=== PATIENT | male | born 1955 | race African-American/Black ===

== ENCOUNTER 2018-11-26 09:04 | Emergency (ER) | payer MEDICAID ==
[~2018-11-26] VITALS: Ht 180.3 cm; Wt 100.0 kg
[2018-11-26] MEDS ORDERED: LOSA25TA26 PO (09:14)
[2018-11-26] MEDS ORDERED: SODIUM CHLORIDE 0.9% 1,000 ML IV ONE (10:39)
[2018-11-26 11:47] LABS: BASOPHILS % 0.4 % (0.0-2.0); EOSINOPHILS % 1.8 % (0.0-5.0); HEMOGLOBIN. 15.6 g/dL (14.0-18.0); LYMPHOCYTES % 16.7 % (20.0-50.0); MEAN CORPUSCULAR HEMOGLOBIN 30.2 pg (28.0-32.0); MEAN CORPUSCULAR VOLUME 89.2 fL (80.0-94.0); MEAN PLATELET VOLUME 9.5 fl (7.4-10.4); MONOCYTES % 6.6 % (2.0-8.0); NEUTROPHILS % 74.5 % (40.0-76.0); PLATELET 234 x1000/uL (130-400); RED BLOOD CELL COUNT 5.16 mill/uL (4.7-6.1); RED CELL DISTRIBUTION WIDTH 13.3 % (11.6-14.6)
[2018-11-26 11:51] LABS: CHLORIDE 107 mEq/L (98-107)
[2018-11-26 12:04] LABS: PARTIAL THROMBOPLASTIN TIME 28.2 sec (23.4-31.0); PROTHROMBIN TIME 10.4 sec (9.6-11.0)
[2018-11-26 13:48] VITALS: BP 141/106
[2018-11-26] MEDS ORDERED: IOHEXOL-350 100 ML BOTTLE ONE (14:49)
[2018-11-26] MEDS ORDERED: KETOROLAC 30MG/ML VIAL IV ONE (15:00)
== END 2018-11-26 16:00 | disposition home or self-care (01) ==
LOC: ER 09:31
DX: S61.210A Laceration without foreign body of right index finger without damage to nail, initial encounter (principal); S16.1XXA Strain of muscle, fascia and tendon at neck level, initial encounter; S29.8XXA Other specified injuries of thorax, initial encounter; I10 Essential (primary) hypertension; Z79.899 Other long term (current) drug therapy; V49.9XXA Car occupant (driver) (passenger) injured in unspecified traffic accident, initial encounter; Y93.89 Activity, other specified; Y92.89 Other specified places as the place of occurrence of the external cause; Y99.8 Other external cause status
CPT/HCPCS: 12001; 36415; 71045; 71275; 72125; 73130; 80053; 83880; 84484; 85025; 85610; 85730; 93005; 99284; A4217; J1885; J7030; Q9967